=== PATIENT | female | born 1945 | race Caucasian/White ===

== ENCOUNTER → 2016-10-08 | Outpatient (CLI) | payer OTHER, MEDICARE | LOC: FIMAGING 10:59 | PROVIDERS: ATTEND Family Medicine | DX: Z12.31 Encounter for screening mammogram for malignant neoplasm of breast (principal); Z80.3 Family history of malignant neoplasm of breast | CPT/HCPCS: G0202 ==

== ENCOUNTER → 2017-10-09 | Outpatient (CLI) | payer OTHER, MEDICARE | LOC: FIMAGING 12:56 | PROVIDERS: ATTEND Family Medicine | DX: Z12.31 Encounter for screening mammogram for malignant neoplasm of breast (principal); Z80.3 Family history of malignant neoplasm of breast ==

== ENCOUNTER 2018-05-13 10:54 | Emergency (ER) | payer OTHER, MEDICARE ==
--- NOTE | 2018-05-13 11:09 | EDPHY ---
H & P Stated Complaint: cp Time Seen by Provider: 05/13/18 11:09 - Personal History Current Tetanus Diphtheria and Acellular Pertussis (TDAP): Yes - Medical/Surgical History Hx Asthma: No Hx Chronic Respiratory Disease: No Hx Diabetes: No Hx Cardiac Disease: No Hx Renal Disease: No Hx Cirrhosis: No Hx Alcoholism: No Hx HIV/AIDS: No Hx Splenectomy or Spleen Trauma: No Other PMH: Menniere's disease, high cholesterol, vertigo, hysterectomy, breast implants - Social History Smoking Status: Former smoker Constitutional: Initial Vital Signs Temperature (C) 36.4 C 05/13/18 11:00 Heart Rate 56 L 05/13/18 11:00 Respiratory Rate 16 05/13/18 11:00 Blood Pressure 124/77 H 05/13/18 11:00 O2 Sat (%) 97 05/13/18 11:00 O2 Delivery Mode Room Air Allergies/Adverse Reactions: niacin Allergy (Verified 05/13/18 10:58) Home Medications: Medication Instructions Recorded Diazepam 07/06/09 Topamax 07/06/09 SIMVASTATIN 05/13/18 Triamterene 05/13/18 Medical Decision Making - Diagnostics Imaging: I viewed and interpreted images myself ED Course/Re-evaluation: CHIEF COMPLAINT: Chest pain HISTORY OF PRESENT ILLNESS: The patient is a 72 y/o female with a history of M nire's disease and high cholesterol complaining of point tenderness over her left anterior chest for the last week. She describes the pain as constant pressure that is sharp "like a needle." Pain is worse with certain positions like lying on her side. She has had similar pain in the remote past that resolved without intervention. She is also concerned that her blood pressure has been lower than normal during two audiology visits in the last week, around 95/50. She called her PCP today and was referred to urgent care for cardiac work up, but urgent care referred her here. She denies dyspnea, fever, cough, recent injury or abnormal lifting. REVIEW OF SYSTEMS: A comprehensive 10 system review of systems is otherwise negative aside from elements mentioned in the history of present illness and medical decision making. PHYSICAL EXAM: HR, BP, O2 Sat, RR. Temp noted General Appearance: Alert, well hydrated, appropriate, and non-toxic appearing. Head: Atraumatic without scalp tenderness or obvious injury Eyes: Pupils equal, round, reactive to light and accommodation, EOMI, no trauma , no injection. Nose: Atraumatic, no rhinorrhea, clear. Throat: Mucus membranes moist. Neck: Supple, nontender, no lymphadenopathy. Respiratory: No retractions, no distress, no wheezes, and no accessory muscle use. Lungs are clear to auscultation bilaterally. Cardiovascular: Regular rate and rhythm, no murmurs, rubs, or gallops. Good capillary refill all extremities. Chest: Point tenderness at left mid clavicular line around 5th or 6th rib. Gastrointestinal: Abdomen is soft, nontender, non-distended, no masses, no rebound, no guarding, no peritoneal signs. Musculoskeletal: Normal active ROM of all extremities, atraumatic. Neurological: Alert, appropriate, and interactive. The patient has non-focal cranial nerves, motor, sensory, and cerebellar exam. Skin: No rashes, good turgor, no nodules on palpation. Past medical history: Mnire's disease, high cholesterol, vertigo Past surgical history: Hysterectomy, breast implants Family history: Noncontributory Social history: Lives in [place], , employed. PCP: Dr. June. DIAGNOSTICS/PROCEDURES/CRITICAL CARE TIME: The 12 lead EKG was interpreted by myself. Sinus mechanism. New inverted T waves in precordial leads compared to EKG 2014. See hard copy and/or "tracemaster" electronic copy for interpretation. Chest x-ray: nothing acute Echocardiogram: preliminary read is negative. DIFFERENTIAL DIAGNOSIS: The differential diagnosis for the patient's chest pain included but was not limited to myocardial ischemia, pulmonary embolus, chest wall pain, pleural inflammation, and pulmonary infectious causes. MEDICAL DECISION MAKING: This is a 72 y/o female who presents with a 1-week history of localized left anterior chest pain. She has reproducible point tenderness at her midclavicular line just above her left breast. Lungs are clear. Doubt ACS. Presentation likely musculoskeletal in nature. Plan for IV, labs, EKG, chest x-ray, and echocardiogram due to EKG changes. Consulted with Lydia from cardiology. She agrees with plan for echocardiogram. Labs are unremarkable. Chest x-ray is negative. Echocardiogram is negative. Reassessed patient and discussed findings. She will be discharged home with standard chest wall pain care and follow up instructions. Return precautions discussed. She is comfortable with this plan. - Data Points Laboratory Results: Laboratory Results 05/13/18 11:07 05/13/18 11:07 05/13/18 05/13/18 05/13/18 11:27 11:07 11:07 WBC RBC Hgb Hct MCV MCH MCHC RDW Plt Count MPV Neut % (Auto) Lymph % (Auto) [place] % (Auto) Eos % (Auto) Baso % (Auto) Nucleat RBC Rel Count Absolute Neuts (auto) Absolute Lymphs (auto) Absolute Monos (auto) Absolute Eos (auto) Absolute Basos (auto) Absolute Nucleated RBC Immature Gran % Immature Gran # D-Dimer 0.45 ug/mLFEU ug/mLFEU (0.00-0.50) Sodium 139 mEq/L mEq/L (135-145) Potassium 3.3 mEq/L L mEq/L (3.5-5.2) Chloride 104 mEq/L mEq/L (97-110) Carbon Dioxide 28 mEq/l mEq/l (22-31) Anion Gap 7 mEq/L mEq/L (6-14) BUN 29 mg/dL H mg/dL (7-23) Creatinine 1.2 mg/dL H mg/dL (0.6-1.0) Estimated GFR 44 Glucose 89 mg/dL mg/dL (70-100) Calcium 9.8 mg/dL mg/dL (8.5-10.4) POC Troponin I 0.00 ng/mL ng/mL (0.00-0.08) 05/13/18 11:07 WBC 6.13 10^3/uL 10^3/uL (3.80-9.50) RBC 4.93 10^6/uL 10^6/uL (4.18-5.33) Hgb 14.3 g/dL g/dL (12.6-16.3) Hct 43.7 % % (38.0-47.0) MCV 88.6 fL fL (81.5-99.8) MCH 29.0 pg pg (27.9-34.1) MCHC 32.7 g/dL g/dL (32.4-36.7) RDW 12.9 % % (11.5-15.2) Plt Count 244 10^3/uL 10^3/uL (150-400) MPV 9.7 fL fL (8.7-11.7) Neut % (Auto) 51.3 % % (39.3-74.2) Lymph % (Auto) 34.9 % % (15.0-45.0) [place] % (Auto) 11.3 % % (4.5-13.0) Eos % (Auto) 1.3 % % (0.6-7.6) Baso % (Auto) 1.0 % % (0.3-1.7) Nucleat RBC Rel Count 0.0 % % (0.0-0.2) Absolute Neuts (auto) 3.15 10^3/uL 10^3/uL (1.70-6.50) Absolute Lymphs (auto) 2.14 10^3/uL 10^3/uL (1.00-3.00) Absolute Monos (auto) 0.69 10^3/uL 10^3/uL (0.30-0.80) Absolute Eos (auto) 0.08 10^3/uL 10^3/uL (0.03-0.40) Absolute Basos (auto) 0.06 10^3/uL 10^3/uL (0.02-0.10) Absolute Nucleated RBC 0.00 10^3/uL 10^3/uL (0-0.01) Immature Gran % 0.2 % % (0.0-1.1) Immature Gran # 0.01 10^3/uL 10^3/uL (0.00-0.10) D-Dimer Sodium Potassium Chloride Carbon Dioxide Anion Gap BUN Creatinine Estimated GFR Glucose Calcium POC Troponin I Point of Care Test Results: Chemistry 05/13/18 11:27 POC Troponin I 0.00 ng/mL ng/mL (0.00-0.08) Departure - Departure Disposition: Home, Routine, Self-Care Clinical Impression: Chest wall pain Condition: Good Instructions: Chest Wall Pain (ED) Additional Instructions: Follow up with your primary care provider as needed for unimproved symptoms. Return to the ED for worsening of condition. Referrals: Rosa Maria June MD [Primary Care Provider] - As per Instructions Report Scribed for: Miguel Angel Martins Report Scribed by: Alicia Oseguera Date of Report: 05/13/18 Time of Report: 12:14
[2018-05-13 11:43] LABS: PLATELET COUNT 244 10^3/uL (150-400)
[2018-05-13 12:39] VITALS: BP 107/69
--- NOTE | 2018-05-13 12:47 | ECHO ---
[email or web address] [address] [address] Main: [phone] Fax: Transthoracic Echocardiogram Name: NEVAEH RICHARDSON MR#: [id number] Study Date: 05/13/2018 Study Time: 11:42 AM Date of : 1945 Age: 72 year(s) Height: 160 cm (63 in.) Weight: 48.99 kg (108 lb.) BSA: 1.49 m2 Gender: Female Examination: Echo Indication: Chest Pain Image Quality: Contrast: Requested by: Miguel Angel Martins BP: / Heart Rate: Rhythm: Indication: Chest Pain Procedure Staff Vocational Education Professional: Marlen Cervantes [facility] Reading Physician: Edin Murrieta MD Requesting Provider: Conclusions: Normal size left ventricle. No LV hypertrophy. The ejection fraction is estimated to be 60-65 %. No regional wall motion abnormality. Normal diastolic LV function. Mild mitral valve leaflet calcification is present. Trivial to mild mitral regurgitation. Mild tricuspid regurgitation is present. The pulmonary artery pressure is normal. No pericardial effusion. No prior study for comparison. Measurements: Chambers Valvular Assessment AV/MV Valvular Assessment TV/PV Normal Normal Normal Name Value Range Name Value Range Name Value Range Ao Verito (MM): 3.2 cm (2.2 cm-3.7 AV Vmax: 1.30 m/s (1 m/s-1.7 TR Vmax: 1.94 mm/s ( - ) cm) m/s) TR PGmax: 15 mmHg ( - ) IVSd (2D): 0.4 cm (0.6 cm-1.1 AV meanP mmHg ( - ) syst. PAP: 20 mmHg ( - ) cm) MV E Vmax: 0.61 m/s ( - ) LVDd (2D): 4.2 cm (3.9 cm-5.3 MV A Vmax: 0.53 m/s ( - ) cm) MV E/A: 1.15 ( - ) LVPWd (2D): 0.6 cm ( - ) LVEF (BP): 71 % (>=55 %) EF Range: 60-65 % Continued Measurements: Chambers Valvular Assessment AV/MV Valvular Assessment TV/PV Patient: NEVAEH RICHARDSON Study Date: 05/13/2018 Page 1 of 2 11:42 AM Name Value Name Value Name Value LADs: 2.9 cm MV E' Septal: 0.09 m/s CVP (est.): 5 mmHg LADs Lon.1 cm MV E/E' Septal: 6.60 LA Area: 13.9 cm2 MV E/E' Lateral: 6.10 LA Volume: 26 ml LA Volume Index: 17.4 ml/m2 Additional Vessels Name Value Ao Ascendin.9 cm Findings: Left Ventricle: Normal size left ventricle. No LV hypertrophy. Normal global systolic LV function. The ejection fraction is estimated to be 60-65 %. No regional wall motion abnormality. Normal diastolic LV function. Right Ventricle: Normal size right ventricle. Left Atrium: The left atrium is normal in size. Right Atrium: The right atrium is normal in size. Mitral Valve: Mild mitral valve leaflet calcification is present. Trivial to mild mitral regurgitation. Aortic Valve: The aortic valve is normal in appearance and function. There is no aortic valve regurgitation. Tricuspid Valve: The tricuspid valve is normal in appearance and function. Mild tricuspid regurgitation is present. The pulmonary artery pressure is normal. Pulmonic Valve: Pulmonary valve not well visualized. Aorta: The aorta is normal. Pericardium: No pericardial effusion. (No Signature Object) Patient: NEVAEH RICHARDSON Study Date: 05/13/2018 Page 2 of 2 11:42 AM [id number]
--- NOTE | 2018-05-13 14:38 | CPEKG ---
Test Reason : OPEN Blood Pressure : / mmHG Vent. Rate : 052 BPM Atrial Rate : 052 BPM P-R Int : 199 ms QRS Dur : 095 ms QT Int : 406 ms P-R-T Axes : 060 013 -07 degrees QTc Int : 378 ms Sinus rhythm Nonspecific T abnormalities, anterior leads Confirmed by Miguel Angel Martins ([id number]) on 05/13/2018 2:37:51 PM Referred By: Miguel Angel Martins Confirmed By:Miguel Angel Martins
== END 2018-05-13 12:38 | disposition home or self-care (01) ==
DX: R07.89 Other chest pain (principal); E78.00 Pure hypercholesterolemia, unspecified
CPT/HCPCS: 84484-ER

== ENCOUNTER → 2018-09-03 | Outpatient (CLI) | payer OTHER, MEDICARE | LOC: FIMAGING 12:12 ==